=== PATIENT | male | born 1970 | race African-American/Black ===

== ENCOUNTER 2017-03-21 12:19 | Emergency (ER) | payer MEDICAID ==
[~2017-03-21] VITALS: Ht 167.6 cm; Wt 75.0 kg
[2017-03-21 13:14] VITALS: BP 112/70
== END 2017-03-21 14:18 | disposition left against medical advice (07) ==
LOC: ER 12:27
DX: R41.82 Altered mental status, unspecified (principal); Z53.21 Procedure and treatment not carried out due to patient leaving prior to being seen by health care provider